=== PATIENT | female | born 1955 | race Caucasian/White ===

== ENCOUNTER 2021-04-26 07:37 | Observation (INO) | payer OTHER ==
--- NOTE | 2021-04-26 08:38 | RAD REPORT ---
EXAM DESCRIPTION: CT - Head Brain Wo Cont - 04/26/2021 8:30 am CLINICAL HISTORY: SYNCOPE Headache, drowsiness COMPARISON: <Comparisons> TECHNIQUE: All CT scans are performed using dose optimization technique as appropriate and may inclu de automated exposure control or mA/KV adjustment according to patient size. FINDINGS: No intracranial hemorrhage, hydrocephalus or extra-axial fluid collection.No areas of brai n edema or evidence of midline shift. The paranasal sinuses and mastoids are clear. The calvarium is intact. IMPRESSION: No acute intracranial abnormality.
[2021-04-26 08:54] LABS: Absolute Lymphocytes (CBC) 0.6 K/uL (0.7-4.9); Basophils % 0.3 % (0-1.3); Hematocrit 42.2 % (36.0-45.0); Lymphocytes % 8.6 % (15.3-44.8); MPV 8.9 fL (7.6-11.3); RBC Red Blood Cell Count 4.76 M/uL (3.86-4.86)
[2021-04-26 08:58] LABS: Protime INR 1.1
[2021-04-26 09:17] LABS: ALT/SGPT 32 U/L (12-78); AST/SGOT 26 U/L (15-37); Albumin 3.1 g/dL (3.4-5.0); Alkaline Phosphatase 86 U/L (45-117); BUN Blood Urea Nitrogen 21 mg/dL (7-18); Bicarbonate 21 mmol/L (21-32); Bilirubin Direct < 0.1 mg/dL (0-0.2); Bilirubin Total 0.2 mg/dL (0.2-1.0); Glucose Level 124 mg/dL (74-106); NT PRO-BNP 46 pg/mL (<125); Potassium 3.7 mmol/L (3.5-5.1); Protein, Total 7.1 g/dL (6.4-8.2); Sodium Level 136 mmol/L (136-145); Troponin (Emerg Dept Use Only) < 0.02 ng/mL (0.0-0.045)
[2021-04-26 11:03] LABS: SARS-COV-2 RT PCR POSITIVE (NEGATIVE)
[2021-04-26] MEDS ORDERED: METHYLPREDNISOLONE 125 MG INJ ONE (11:07)
--- NOTE | 2021-04-26 11:08 | ER ---
Nurse's Notes [facility] Name: Abida Woo Age: 65 yrs Sex: Female : 1955 Arrival Date: 04/26/2021 Time: 07:40 Bed 4 Private MD: None, None Diagnosis: SARS-associated coronavirus as the cause of diseases classified elsewhere;Syncope Presentation: 04/26 07:58 Chief complaint: Patient states: stated having allergy symptoms earlier this week, it iw has not cleared up, also has a headache, passed out three times this morning , drank some water then started sweating profusely . She got up and got dressed and the next thing she remembers she was on the floor , has had previous episodes of hypoglycemia where she has passed out. Coronavirus screen: Client presents with at least one sign or symptom that may indicate coronavirus-19. Ebola Screen: Patient negative for fever greater than or equal to 101.5 degrees Fahrenheit, and additional compatible Ebola Virus Disease symptoms Patient denies exposure to infectious person. Patient denies travel to an Ebola-affected area in the 21 days before illness onset. No symptoms or risks identified at this time. Initial Sepsis Screen: Does the patient meet any 2 criteria? No. Patient's initial sepsis screen is negative. Does the patient have a suspected source of infection? No. Patient's initial sepsis screen is negative. Risk Assessment: Do you want to hurt yourself or someone else? Patient reports no desire to harm self or others. Onset of symptoms was April 26, 2021. 07:58 Method Of Arrival: Ambulatory iw 07:58 Acuity: CR 3 iw Triage Assessment: 08:00 General: Appears in no apparent distress. comfortable, slender, Behavior is bp cooperative, appropriate for age, anxious. Pain: Denies pain. EENT: No deficits noted. Neuro: Reports a syncopal episode. Cardiovascular: Rhythm is sinus rhythm. Respiratory: Airway is patent Respiratory effort is even, unlabored, Respiratory pattern is regular, symmetrical. GI: No signs and/or symptoms were reported involving the gastrointestinal system. : No signs and/or symptoms were reported regarding the genitourinary system. Derm: No deficits noted. Musculoskeletal: No deficits noted. Historical: - Allergies: 08:02 No Known Allergies; iw - Home Meds: 08:02 None [Active]; iw - PMHx: 08:02 None; iw - PSHx: 08:02 endometriosis; iw - Immunization history:: Client reports having NOT received the Covid vaccine. - Social history:: Smoking status: Patient denies any tobacco usage or history of. Screenin:10 Abuse screen: Denies threats or abuse. Denies injuries from another. Nutritional bp screening: No deficits noted. Tuberculosis screening: No symptoms or risk factors identified. Fall Risk None identified. Assessment: 08:10 General: SEE TRIAGE NOTE. bp 10:29 Reassessment: No changes from previously documented assessment. Patient and/or family bp updated on plan of care and expected duration. Pain level reassessed. PROVIDER AT B/S FOR RE-EVAL. 11:22 Reassessment: No changes from previously documented assessment. Patient and/or family bp updated on plan of care and expected duration. Pain level reassessed. HOSPITALIST AT B/S. 12:03 Reassessment: No changes from previously documented assessment. Patient and/or family bp updated on plan of care and expected duration. Pain level reassessed. ADMIT IN PROCESS. 13:00 Reassessment: PT TRANSFERRED TO ER HOLD, SEE [facility]. bp Vital Signs: 07:58 BP 135 / 88; Pulse 94; Resp 16; Temp 98.5; Pulse Ox 97% on R/A; Weight 48.53 kg; Height iw 5 ft. 0 in. (152.40 cm); 09:00 BP 140 / 90; Pulse 83; Resp 20; Pulse Ox 98% ; bp 10:28 BP 134 / 86; Pulse 94; Resp 16; Pulse Ox 96% ; bp 12:03 BP 163 / 86; Pulse 81; Resp 17; Pulse Ox 96% ; bp 07:58 Body Mass Index 20.90 (48.53 kg, 152.40 cm) iw ED Course: 07:40 Patient arrived in ED. as 07:40 None, None is Private Physician. as 08:02 Triage completed. iw 08:03 Arm band placed on. iw 08:04 Kelli Harper MD is Attending Physician. sp3 08:10 Patient has correct armband on for positive identification. Bed in low position. Call bp light in reach. Side rails up X2. Adult w/ patient. 08:30 CT Head Brain wo Cont In Process Unspecified. EDMS 08:30 Fady, Checo, RN is Primary Nurse. bp 08:40 Inserted saline lock: 22 gauge in right forearm, using aseptic technique. Blood bp collected. 08:41 Basic Metabolic Panel Sent. bp 08:41 CBC with Diff Sent. bp 08:42 LFT's Sent. bp 08:42 XRAY Chest (1 view) Sent. bp 09:38 XRAY Chest (1 view) In Process Unspecified. EDMS 11:07 Chula Trivedi MD is Hospitalizing Provider. sp3 13:19 Carotid Artery Bilateral In Process Unspecified. EDMS 17:53 No provider procedures requiring assistance completed. Patient admitted, IV remains in bp place. Administered Medications: 11:11 Drug: SOLU-Medrol (methylPrednisoLONE) 60 mg Route: IVP; Site: right forearm; bp 12:04 Follow up: Response: No adverse reaction bp Outcome: 11:08 Decision to Hospitalize by Provider. sp3 13:00 Admitted to ER Hold. Please see [facility] for further documentation. bp 13:00 Condition: stable 13:00 Instructed on the need for admit. 20:14 Admitted to ICU accompanied by nurse, via stretcher, room 6, with chart, Report called bp to Erika OSORIO in ICU. 20:31 Patient left the ED. tw5 Signatures: Dispatcher [employer] Jennifer Castro Irene, DEVON RN Checo Donis, RN RN Kelli Malave MD MD sp3 Kimberly Arnett tw5
--- NOTE | 2021-04-26 11:08 | EDPHYS ---
Physician Documentation [facility] Name: Abida Woo Age: 65 yrs Sex: Female : 1955 Arrival Date: 04/26/2021 Time: 07:40 Bed 4 Private MD: None, None ED Physician Kelli Harper HPI: 04/26 08:20 This 65 yrs old Female presents to ER via Ambulatory with complaints of sp3 Passed Out Prior To Arrival. 08:20 65-year-old female with no significant past medical history presents today with chief sp3 complaint syncope x3, fatigue, and URI symptoms for 1 week. Patient states that she has been having "sinus issues" consisting of rhinorrhea, postnasal drip, mild cough, headache for which she has been taking OTC Zyrtec and Flonase. Symptoms have been occurring for 3 to 4 days when this morning she woke up and had 3 episodes of full syncope which she attributed to "hypoglycemia" which she has had in the past. After the third episode she had a diaphoresis episode which self resolved. Episodes of syncope were full-fledged LOC plus a fall for which she has a mild abrasion on her right temporal area. No other signs of trauma noted. Prior, during, and after 3 episodes, she denies having neck pain, chest pain, shortness of breath, abdominal pain, focal weakness, loss of bowel or bladder control, observable seizure activity from her perspective, tongue abrasion or bites, or any other critical findings. After the third episode she states that she tried to cook and eat but was not able to eat after which she called a friend over who brought her to the emergency room today. Currently patient has only symptoms of fatigue and no other complaints. Patient has no history of cardiac or neuro problems and takes no daily medications.. Historical: - Allergies: 08:02 No Known Allergies; iw - Home Meds: 08:02 None [Active]; iw - PMHx: 08:02 None; iw - PSHx: 08:02 endometriosis; iw - Immunization history:: Client reports having NOT received the Covid vaccine. - Social history:: Smoking status: Patient denies any tobacco usage or history of. ROS: 08:24 Eyes: Negative for injury, pain, redness, and discharge, Neck: Negative for injury, sp3 pain, and swelling, Cardiovascular: Negative for chest pain, palpitations, and edema, Respiratory: Negative for shortness of breath, wheezing, and pleuritic chest pain, but does have a mildly productive cough. Abdomen/GI: Negative for abdominal pain, nausea, vomiting, diarrhea, and constipation, Back: Negative for injury and pain, MS/Extremity: Negative for injury and deformity, Skin: Negative for injury, rash, and discoloration, Neuro: Negative for weakness, numbness, tingling, and seizure, but does have a headache. Psych: Negative for depression, anxiety, suicide ideation, homicidal ideation, and hallucinations, Endocrine: Negative for neck swelling, polydipsia, polyuria, polyphagia, and marked weight changes, Hematologic/Lymphatic: Negative for swollen nodes, abnormal bleeding, and unusual bruising. 08:24 All other systems are negative. Exam: 08:24 Constitutional: This is a well developed, well nourished patient who is awake, alert, sp3 and in no acute distress. Head/Face: Normocephalic, atraumatic. Eyes: Pupils equal round and reactive to light, extra-ocular motions intact. Lids and lashes normal. Conjunctiva and sclera are non-icteric and not injected. Cornea within normal limits. Periorbital areas with no swelling, redness, or edema. ENT: Nares patent. No nasal discharge, no septal abnormalities noted. External auditory canals are clear. Oropharynx with no redness, swelling, or masses, exudates, or evidence of obstruction, uvula midline. Mucous membranes moist. Neck: Trachea midline, no thyromegaly or masses palpated, and no cervical lymphadenopathy. Supple, full range of motion without nuchal rigidity, or vertebral point tenderness. No Meningismus. Chest/axilla: Normal chest wall appearance and motion. Nontender with no deformity. No lesions are appreciated. Cardiovascular: Regular rate and rhythm with a normal S1 and S2. No gallops, murmurs, or rubs. Normal PMI, no JVD. No pulse deficits. Respiratory: Lungs have equal breath sounds bilaterally, clear to auscultation and percussion. No rales, rhonchi or wheezes noted. No increased work of breathing, no retractions or nasal flaring. Abdomen/GI: Soft, non-tender, with normal bowel sounds. No distension or tympany. No guarding or rebound. No evidence of tenderness throughout. Back: No spinal tenderness. No costovertebral tenderness. Full range of motion. Skin: Warm, dry with normal turgor. Normal color with no rashes, no lesions, and no evidence of cellulitis. MS/ Extremity: Pulses equal, no cyanosis. Neurovascular intact. Full, normal range of motion. Neuro: Awake and alert, GCS 15, oriented to person, place, time, and situation. Cranial nerves II-XII grossly intact. Motor strength 5/5 in all extremities. Sensory grossly intact. Cerebellar exam normal. Normal gait. Psych: Awake, alert, with orientation to person, place and time. Behavior, mood, and affect are within normal limits. 08:24 ECG was reviewed by the Attending Physician. EKG demonstrates normal sinus rhythm at 86 bpm with normal intervals, normal QRS, normal axis and nonspecific diffuse ST/T changes without evidence of acute ischemia. No old EKG is available. Vital Signs: 07:58 BP 135 / 88; Pulse 94; Resp 16; Temp 98.5; Pulse Ox 97% on R/A; Weight 48.53 kg; Height iw 5 ft. 0 in. (152.40 cm); 09:00 BP 140 / 90; Pulse 83; Resp 20; Pulse Ox 98% ; bp 10:28 BP 134 / 86; Pulse 94; Resp 16; Pulse Ox 96% ; bp 12:03 BP 163 / 86; Pulse 81; Resp 17; Pulse Ox 96% ; bp 07:58 Body Mass Index 20.90 (48.53 kg, 152.40 cm) iw MDM: 08:08 Patient medically screened. sp3 08:25 Data reviewed: vital signs, nurses notes. ED course: 65-year-old with no past medical sp3 history with 3 episodes of syncope with LOC. Will obtain full cardiac work-up and CT scan of the head. Given the multiple episodes and patient still feeling fatigued, will likely lean on admitting patient for cardiac rule out and observation. Differential includes acute coronary syndrome, ICH, CVA, hypoglycemia, metabolic derangement, arrhythmia, viral syndrome including COVID-19, or other infectious etiology leading to sepsis. Clinically patient is stable not in shock and does not have any sirs criteria. Will reevaluate for final disposition after data is back after conferring with patient for joint decision-making.. 11:10 ED course: Work-up is negative except for her being COVID-19 positive. X-ray sp3 demonstrates fluid in the fissure and diffuse viral pattern. Will start on Solu-Medrol and admit patient to hospitalist for cardiac work-up as well as continued comfort care.. 04/26 08:17 Order name: Basic Metabolic Panel sp3 04/26 08:17 Order name: CBC with Diff sp3 04/26 08:17 Order name: LFT's sp3 04/26 08:17 Order name: Magnesium; Complete Time: 09:42 sp3 04/26 08:17 Order name: NT PRO-BNP; Complete Time: 09:42 sp3 04/26 08:17 Order name: PT-INR; Complete Time: 09:42 sp3 04/26 08:17 Order name: Troponin (emerg Dept Use Only); Complete Time: 09:42 sp3 04/26 08:17 Order name: Basic Metabolic Panel; Complete Time: 09:42 EDMS 04/26 08:17 Order name: CBC with Automated Diff; Complete Time: 09:42 EDMS 04/26 08:17 Order name: Liver (Hepatic) Function; Complete Time: 09:42 EDMS 04/26 08:38 Order name: Glucose, Ancillary Testing; Complete Time: 09:42 EDMS 04/26 08:47 Order name: COVID-19/FLU A+B (Document "Date of Onset" if Symptomatic) em1 04/26 12:02 Order name: Folic Acid, (Folate) EDMS 04/26 08:17 Order name: XRAY Chest (1 view) sp3 04/26 08:17 Order name: CT Head Brain wo Cont; Complete Time: 09:42 sp3 04/26 12:02 Order name: Vitamin B12 Level EDMS 04/26 12:02 Order name: Vitamin D, 25 ([place]), TOTAL EDMS 04/26 12:02 Order name: C-Reactive Protein EDMS 04/26 12:02 Order name: C-Reactive Protein EDMS 04/26 12:02 Order name: Comprehensive Metabolic Panel EDMS 04/26 12:02 Order name: Comprehensive Metabolic Panel EDMS 04/26 12:02 Order name: Ferritin EDMS 04/26 12:02 Order name: Ferritin EDMS 04/26 12:02 Order name: Echo with Doppler EDMS 04/26 12:03 Order name: Homocysteine EDDE 04/26 12:03 Order name: Protein C Antigen [facility] 04/26 12:03 Order name: Carotid Artery Bilateral [facility] 04/26 12:19 Order name: Hemoglobin A1c [facility] 04/26 08:17 Order name: EKG; Complete Time: 08:18 sp3 04/26 08:17 Order name: Cardiac monitoring; Complete Time: 08:30 sp3 04/26 08:17 Order name: EKG - Nurse/Tech; Complete Time: 08:27 sp3 04/26 08:17 Order name: IV Saline Lock; Complete Time: 08:30 sp3 04/26 08:17 Order name: Labs collected and sent; Complete Time: 08:30 sp3 04/26 08:17 Order name: O2 Per Protocol; Complete Time: 08:30 sp3 04/26 08:17 Order name: O2 Sat Monitoring; Complete Time: 08:30 sp3 04/26 08:17 Order name: Accucheck; Complete Time: 08:30 sp3 04/26 12:01 Order name: NPO [facility] 04/26 12:02 Order name: Physical Therapy Consult [facility] 04/26 12:02 Order name: NPO [facility] 04/26 12:02 Order name: NPO [facility] 04/26 12:02 Order name: EKG Electrocardiogram [facility] 04/26 12:03 Order name: Speech Therapy Consult [facility] Administered Medications: 11:11 Drug: SOLU-Medrol (methylPrednisoLONE) 60 mg Route: IVP; Site: right forearm; bp 12:04 Follow up: Response: No adverse reaction bp Disposition Summary: 04/26/21 11:08 Hospitalization Ordered Hospitalization Status: Observation sp3 Provider: Chula Trivedi sp3 Condition: Stable sp3 Problem: new sp3 Symptoms: are unchanged sp3 Bed/Room Type: Standard sp3 Location: Intensive Care Unit(04/26/21 19:54) sp3 Room Assignment: 6-(04/26/21 19:54) sp3 Diagnosis - SARS-associated coronavirus as the cause of diseases classified elsewhere sp3 - Syncope sp3 Forms: - Medication Reconciliation Form sp3 - SBAR form sp3 Signatures: Dispatcher [employer] EDMS Viry Fonseca RN RN iw Peltier, Brian, RN RN bp Patel, Setul, MD MD sp3 Corrections: (The following items were deleted from the chart) 11:08 Telemetry/MedSurg (observation) sp3 iw 11: sp3 iw 12:59 [facility]
--- NOTE | 2021-04-26 11:47 | RAD REPORT ---
EXAM DESCRIPTION: RAD - Chest Single View - 04/26/2021 9:38 am CLINICAL HISTORY: syncope Chest pain. COMPARISON: No comparisons FINDINGS: Portable technique limits examination quality. Interstitial lung markings are mildly prominent which may represent viral infection or bronchitis. Th e heart is upper limit of normal in size. No displaced fractures.
[2021-04-26] MEDS ORDERED: ACETAMINOPHEN 500 MG TAB PO PRN (11:57)
[2021-04-26] MEDS ORDERED: ONDANSETRON 4 MG/2 ML VIAL IV PRN (11:57)
[2021-04-26] MEDS ORDERED: ZOLPIDEM TARTRATE 5 MG TABLET PO PRN (11:57)
[2021-04-26] MEDS ORDERED: NA CHLORIDE 0.9% 1,000 ML IV SCH (12:00)
--- NOTE | 2021-04-26 13:00 | HP ---
Date of Admission: 04/26/2021 Reason For Admission: COVID as well as a syncopal episode. History Of Present Illness: This is a 65-year-old female who is very healthy for the most without si gnificant past medical history who presented to the emergency room with new episode of syncope happen ed this morning for 3 times. The patient reported progressive fatigue and a number of symptoms for a lmost a week. There was mild sore throat with abnormal T-Spot as well as rhinorrhea and postnasal dr ip with some cough and headache. The patient was taking Zyrtec, over the counter of Flonase, but her symptoms did not improve. Due to her syncopal episode, she decided to come to the emergency room. She reported history of hypoglycemia and she was thinking maybe her syncope was because of the hypogl ycemia. In the ER, patient was evaluated, CT of the head was done, was negative. Chest x-ray was ne gative as well. Her labs showed normal CBC. CMP was normal except for glucose of 124 and she was sc reened for COVID and she was positive. Currently, she is lying in bed. She looks comfortable. She has no chest pain. No abdominal pain. No fever, no chills. Her family at the bedside. She was not vaccinated previously. Review of Systems: Otherwise negative. Past Medical History: Significant for hypoglycemia. Past Surgical History: None. Allergies: NONE. Social History: She is single. She has no kids. She works for a training center at a local company . She does not drink, smoke, or use any drugs. Family History: Father and mother . Mother of dementia and father of Dawes's compli cation. Medication: At home, none. Review of Systems: Denies any fever, chills, night sweats. She was dizzy with syncopal episode x3. She does not have a ny nausea, vomiting. No abdominal pain. No diarrhea, constipation, dysuria, frequency, urgency, hem aturia. She reported dry cough, mild shortness of breath. Postnasal drip with allergic symptoms for the last week as well as significant fatigue. There was no chest pain, palpitations, PND, orthopnea , dyspnea on exertion. No lower extremity edema. She does not have any history of depression, anxie ty, seizure, or stroke. There was no stool or urine incontinence. She has not checked her sugar whe n she failed. Physical Examination: Vital Signs: Blood pressure is 135/88, respiratory rate 20, temperature is 98.5, pulse 94. She satu rating 98% on room air. Alert, oriented x3. Does not look in any distress. HEENT: Atraumatic, normocephalic. PERRLA. Oral mucosa is moist. Neck: Supple. No JVD. No carotid bruit. Chest: Clear to auscultation. Good air entry. Heart: Regular rate and rhythm. S1 and S2 normal. No gallop or murmur. Abdomen: Soft, nontender with no hepatosplenomegaly. Positive bowel sounds. Extremities: No clubbing, cyanosis, or edema. No calf tenderness, Neuro: Grossly intact. Cranial nerve exam 2 through 12 intact. Normal sensation. Normal reflexes. Normal muscle strength. Laboratory Data: Today, showed CBC all within normal. CMP was normal except for BUN of 21, glucose 124, calcium of 8.3. CAT scan of the head negative. Chest x-ray negative. Assessment/plan: A 65-year-old female with history of hypoglycemia, presented with history of syncop e here for initial evaluation. 1.Syncope? Etiology. We discussed cardiac versus hypoglycemic anemia versus vasovagal. We will pr oceed with echo and carotid Doppler to make sure there is no cardiac etiology. We will check hemoglo bin A1c soon to make sure patient average blood sugar glucose is not low. We will continue patient o n baby aspirin at this time. We will monitor her blood pressure while inpatient. 2.COVID infection. Patient is symptomatic and she is not even on oxygen. We will start her on pred nisone, Prevacid, vitamin C, thiamine and vitamin D. 3.Advised patient to take COVID vaccine. CONCEPCION/FAIZA Voice ID: [id number]
[2021-04-26] MEDS ORDERED: ACETAMINOPHEN 500 MG TAB ONE (13:23)
--- NOTE | 2021-04-26 13:57 | RAD REPORT ---
EXAM DESCRIPTION: - CP - 04/26/2021 1:20 pm CLINICAL HISTORY: syncope Headache, drowsiness COMPARISON: No comparisons TECHNIQUE: Real-time sonographic evaluation of both carotid systems was performed. Doppler interroga tion was performed with waveform tracing bilaterally. FINDINGS: Normal high resistance waveforms are noted in both external carotid arteries. The common c arotid arteries and internal carotid arteries show normal low resistance waveforms. Mild hard plaque is seen left carotid bulb. Peak systolic and end diastolic velocity values and the I CA/CCA ratios are in the non-hemodynamically significant range. Antegrade flow seen in both vertebral arteries. IMPRESSION: Mild hard plaque left carotid bulb. No evidence of a hemodynamically significant stenosis.
[2021-04-26 17:42] VITALS: BMI 20.9
[2021-04-26 17:55] LABS: Folic Acid, (Folate) > 20.0 ng/mL (3.1-17.5)
[2021-04-26] MEDS ORDERED: predniSONE 20 MG TAB PO SCH (21:00)
[2021-04-26] MEDS ORDERED: FAMOTIDINE 20 MG/2 ML VIAL IV SCH (21:00)
[2021-04-27] MEDS ORDERED: THIAMINE HCL 100 MG TABLET PO SCH (09:00)
[2021-04-27] MEDS ORDERED: ASPIRIN EC 81 MG TAB PO SCH (09:00)
[2021-04-27] MEDS ORDERED: ASCORBIC ACID 500 MG TABLET PO SCH (09:00)
[2021-04-27 09:27] VITALS: O2SAT 98
[2021-04-27 10:13] VITALS: TEMP 97.4
[2021-04-27 10:14] VITALS: BP 135/77
--- NOTE | 2021-04-28 07:59 | ECHO ---
HEIGHT: 5 ft 0 in WEIGHT: 107 lb 0 oz DATE OF STUDY: 04/27/[address]: Chula Trivedi MD 2-DIMENSIONAL: YES M.MODE: YES DOPPLER: YES COLOR FLOW: YES TDS: NO PORTABLE: YES DEFINITY: NO BUBBLE STUDY: NO DIAGNOSIS: STROKE CARDIAC HISTORY: CATHERIZATION: NO SURGERY: NO PROSTHETIC VALVE: NO PACEMAKER: NO MEASUREMENTS (cm) DIASTOLIC (NORMALS) SYSTOLIC (NORMALS) IVSd 0.9 (0.6-1.2) LA Diam 1.7 (1.9-4.0) LVEF 67% LVIDd 3.1 (3.5-5.7) LVIDs 2.0 (2.0-3.5) %FS 36% LVPWd 1.0 (0.6-1.2) Ao Diam 1.6 (2.0-3.7) 2 DIMENSIONAL ASSESSMENT: RIGHT ATRIUM: NORMAL LEFT ATRIUM: NORMAL RIGHT VENTRICLE: NORMAL LEFT VENTRICLE: NORMAL TRICUSPID VALVE: NORMAL MITRAL VALVE: NORMAL PULMONIC VALVE: NORMAL AORTIC VALVE: NORMAL PERICARDIAL EFFUSION: NONE AORTIC ROOT: NORMAL LEFT VENTRICULAR WALL MOTION: NORMAL DOPPLER/COLOR FLOW: NORMAL COMMENTS: NORMAL LEFT VENTRICULAR EJECTION FRACTION 60-65% WITH NORMAL WALL MOTION. MILD DIASTOLIC DYSFUCNTION. TECHNOLOGIST: Pavel RAINEY
[2021-05-03] MEDS ORDERED: DRISDOL (VITAMIN D=ERGOCALCIFEROL) 50000 UNIT CAP PO SCH (09:00)
--- NOTE | 2021-05-04 00:57 | P.DS ---
Discharge Date: 04/27/21 Disposition: ROUTINE DISCHARGE Discharge Condition: GOOD Brief History of Present Illness: This is a 65-year-old female who is very healthy for the most without significant past medical history who presented to the emergency room with new episode of syncope happened this morning for 3 times. The patient reported progressive fatigue and a number of symptoms for almost a week. There was mild sore throat with abnormal T-Spot as well as rhinorrhea and postnasal drip with some cough and headache. The patient was taking Zyrtec, over the counter of Flonase, but her symptoms did not improve. Due to her syncopal episode, she decided to come to the emergency room. She reported history of hypoglycemia and she was thinking maybe her syncope was because of the hypoglycemia. In the ER, patient was evaluated, CT of the head was done, was negative. Chest x-ray was negative as well. Her labs showed normal CBC. CMP was normal except for glucose of 124 and she was screened for COVID and she was positive. Currently, she is lying in bed. She looks comfortable. She has no chest pain. No abdominal pain. No fever, no chills. Her family at the bedside. She was not vaccinated previously. Hospital Course: Patient is clinically doing well. Echocardiogram and carotid Doppler are negative. At this time, patient is stable for discharge with outpatient follow- up. Vital Signs/Physical Exam: Temp Pulse Resp BP Pulse Ox 97.4 F 87 19 135/77 98 04/27/21 08:00 04/27/21 10:04 04/27/21 10:04 04/27/21 10:04 04/27/21 08:00 General: Alert, In no apparent distress, Oriented x3 Laboratory Data at Discharge: WBC 6.50 K/uL (4.3-10.9) 04/26/21 08:40 Hgb 13.7 g/dL (12.0-15.0) 04/26/21 08:40 Hct 42.2 % (36.0-45.0) 04/26/21 08:40 Plt Count 157 K/uL (152-406) 04/26/21 08:40 PT 12.7 SECONDS (9.5-12.5) H 04/26/21 08:40 INR 1.10 04/26/21 08:40 Sodium 136 mmol/L (136-145) 04/26/21 08:40 Potassium 3.7 mmol/L (3.5-5.1) 04/26/21 08:40 BUN 21 mg/dL (7-18) H 04/26/21 08:40 Creatinine 0.61 mg/dL (0.55-1.3) 04/26/21 08:40 Glucose 124 mg/dL (74-106) H 04/26/21 08:40 Magnesium 2.0 mg/dL (1.8-2.4) 04/26/21 08:40 Total Bilirubin 0.2 mg/dL (0.2-1.0) 04/26/21 08:40 AST 26 U/L (15-37) 04/26/21 08:40 ALT 32 U/L (12-78) 04/26/21 08:40 Alkaline Phosphatase 86 U/L (45-117) 04/26/21 08:40 Home Medications: Amlodipine [Norvasc] 5 mg PO DAILY #30 tab 04/27/21 New Medications: Amlodipine [Norvasc] 5 mg PO DAILY #30 tab Physician Discharge Instructions: OK TO DC IV AND DC HOME FOLLOW-UP WITH PRIMARY CARE PROVIDER IN 1-2 WEEKS FOLLOW-UP WITH CARDIOLOGY IN 1-2 WEEKS RETURN TO THE ER IF symptoms worsen CALL or TEXT DR. MONREAL AT [phone] IF ANY QUESTIONS REGARDING HOSPITAL STAY. PLEASE CALL THE FLOOR AT [phone] IF ANY MEDICATION OR NURSING QUESTIONS. Diet: Regular Activity: Fall precautions Followup: Chan Yousif MD [ACTIVE - CAN ADMIT] - 1-2 Weeks (Call for appointment.) Chula Trivedi MD [Primary Care Provider] - 1-2 Weeks (Call for appointment.) Time spent managing pt's care (in minutes): 35
== END 2021-04-27 10:35 | disposition home or self-care (01) ==
LOC: SUPCPDRO 07:37 → ER 07:37 → ERHOLD 13:29 → 3RD-ICU 20:15
PROVIDERS: ADMIT Internal Medicine; ATTEND Internal Medicine
DX: U07.1 COVID-19 (principal); R55 Syncope and collapse
CPT/HCPCS: 93005; 93306; 85025; 80048; 36415; 83735; 85610; 82947 ×2; 80076; 83036; 84484; 82746; 82607; 82306; 83880; 0240U; 83090; 85302; 70450; 71045; 93880; 94760; 96374; 99285; J2930; G0378 ×3